=== PATIENT | female | born 1975 | race Caucasian/White ===

== ENCOUNTER 2021-08-12 02:28 | Emergency (ER) | payer OTHER ==
[~2021-08-12] VITALS: Ht 160 cm; Wt 113.4 kg
[2021-08-12 03:02] LABS: BASOPHILS ABSOLUTE AUTO 0.04 K/mm3 (0.00-0.23); BASOPHILS PERCENT AUTO 0 % (0-2); EOSINOPHILS ABSOLUTE AUTO 0.22 K/mm3 (0.00-0.68); EOSINOPHILS PERCENT AUTO 2 % (0-6); IMMATURE GRAN ABSOLUTE AUTO 0.03 K/mm3 (0.00-0.10); IMMATURE GRAN PERCENT AUTO 0 % (0-1); LYMPHOCYTES ABSOLUTE AUTO 2.44 K/mm3 (0.84-5.20); LYMPHOCYTES PERCENT AUTO 25 % (21-46); MONOCYTES ABSOLUTE AUTO 0.58 K/mm3 (0.16-1.47); MONOCYTES PERCENT AUTO 6 % (4-13); Mean Corpuscular HGB 27.6 pg (26.0-34.0); Mean Corpuscular HGB Conc 32.4 g/dL (31.5-36.5); Mean Corpuscular Volume 85 fL (80-100); Mean Platelet Volume 9.4 fL (9.1-12.4); NEUTROPHILS ABSOLUTE AUTO 6.62 K/mm3 (1.96-9.15); NEUTROPHILS PERCENT AUTO 67 % (41-73); Platelet Count 401 K/mm3 (150-400); RDW Coefficient Variation 14.2 % (11.7-14.2); RDW Standard Deviation 43.8 fL (35.1-46.3); Red Blood Cell Count 3.98 M/mm3 (3.80-5.20); White Blood Cell Count 9.93 K/mm3 (4.00-11.30)
[2021-08-12] MEDS ORDERED: AMLODIPINE BES2.5 MG PO (03:07)
[2021-08-12] MEDS ORDERED: ATOR40TA PO (03:07)
[2021-08-12] MEDS ORDERED: METFORMIN HCL500 M2 PO (03:07)
[2021-08-12] MEDS ORDERED: Ventolin/Prove6.7 GM (03:07)
[2021-08-12] MEDS ORDERED: AMITRIPTYLINE H25 MG PO (03:08)
[2021-08-12] MEDS ORDERED: HYDCHL25 PO (03:08)
[2021-08-12] MEDS ORDERED: COREG25 MG PO (03:08)
[2021-08-12] MEDS ORDERED: PLAVIX75 MG PO (03:08)
[2021-08-12] MEDS ORDERED: LISI20 PO (03:08)
[2021-08-12] MEDS ORDERED: DICLOFENAC SOD100 G1 TP (03:08)
[2021-08-12] MEDS ORDERED: INSULIN GL100 UNIT/2 (03:09)
[2021-08-12] MEDS ORDERED: NYSTRIT TOP (03:09)
[2021-08-12] MEDS ORDERED: INSULIN LI100 UNIT/6 SC (03:09)
[2021-08-12] MEDS ORDERED: NITROGLYCERIN0.4 M3 SL (03:10)
[2021-08-12] MEDS ORDERED: TRIDERM28.4 GM TOP (03:10)
[2021-08-12] MEDS ORDERED: TRAM50 PO (03:10)
[2021-08-12 03:21] LABS: Alanine Aminotransfer (ALT/SGP 14 U/L (12-78); Albumin, Blood 2.7 g/dL (3.4-5.0); Albumin/Globulin Ratio 0.6 (0.8-1.8); Alk Phos 66 U/L (50-136); Anion Gap 7 mmol/L (6-16); Aspartate Aminotrans (AST/SGOT 8 U/L (12-37); Bilirubin, Total 0.3 mg/dL (0.1-1.0); Blood Urea Nitrogen 10 mg/dL (8-24); Bun/Creatinine Ratio 17.8 (12.0-20.0); CO2, Blood 25 mmol/L (21-32); Calcium, Blood 8.4 mg/dL (8.5-10.1); Chloride, Blood 107 mmol/L (98-108); Creatinine, Blood 0.56 mg/dL (0.40-1.00); Globulin, Blood 4.3 g/dL (2.2-4.0); Glomerular Filtration Rate >60 (60-); Glucose, Blood 205 mg/dL (70-99); Potassium, Blood 3.7 mmol/L (3.5-5.5); Sodium, Blood 139 mmol/L (136-145); Troponin I <0.015 ng/mL (0.000-0.040)
== END 2021-08-12 04:23 | disposition home or self-care (01) ==
LOC: ER 02:28
PROVIDERS: Emergency Medicine
DX: R07.2 Precordial pain (principal); I25.2 Old myocardial infarction; E11.9 Type 2 diabetes mellitus without complications; I10 Essential (primary) hypertension; Z79.899 Other long term (current) drug therapy; Z79.84 Long term (current) use of oral hypoglycemic drugs; Z79.4 Long term (current) use of insulin
CPT/HCPCS: 36415; 71045; 80053; 83880; 84484; 85025; 93005; 93010; A9270; J2270

== ENCOUNTER 2022-06-20 12:33 | Emergency (ER) | payer OTHER ==
[~2022-06-20] VITALS: Ht 160 cm; Wt 113.4 kg
[~2022-06-20 12:33] MED LIST: AMITRIPTYLINE H25 MG PO; AMLODIPINE BES2.5 MG PO; ATOR40TA PO; COREG25 MG PO; DICLOFENAC SOD100 G1 TP; HYDCHL25 PO; INSULIN GL100 UNIT/2; INSULIN LI100 UNIT/6 SC; LISI20 PO; METFORMIN HCL500 M2 PO; NITROGLYCERIN0.4 M3 SL; NYSTRIT TOP; PLAVIX75 MG PO; TRAM50 PO; TRIDERM28.4 GM TOP; Ventolin/Prove6.7 GM
[2022-06-20 13:13] LABS: BASOPHILS ABSOLUTE AUTO 0.04 K/mm3 (0.00-0.23); BASOPHILS PERCENT AUTO 1 % (0-2); EOSINOPHILS ABSOLUTE AUTO 0.28 K/mm3 (0.00-0.68); EOSINOPHILS PERCENT AUTO 4 % (0-6); Hematocrit 35.7 % (33.0-51.0); Hemoglobin 11.8 g/dL (11.5-16.0); IMMATURE GRAN ABSOLUTE AUTO 0.02 K/mm3 (0.00-0.10); IMMATURE GRAN PERCENT AUTO 0 % (0-1); LYMPHOCYTES PERCENT AUTO 26 % (21-46); MONOCYTES ABSOLUTE AUTO 0.49 K/mm3 (0.16-1.47); MONOCYTES PERCENT AUTO 6 % (4-13); Mean Corpuscular HGB 28.1 pg (26.0-34.0); Mean Corpuscular HGB Conc 33.1 g/dL (31.5-36.5); Mean Corpuscular Volume 85 fL (80-100); Mean Platelet Volume 8.9 fL (9.1-12.4); NEUTROPHILS ABSOLUTE AUTO 4.99 K/mm3 (1.96-9.15); NEUTROPHILS PERCENT AUTO 64 % (41-73); Platelet Count 375 K/mm3 (150-400); RDW Coefficient Variation 14.7 % (11.7-14.2); RDW Standard Deviation 45.4 fL (35.1-46.3); White Blood Cell Count 7.82 K/mm3 (4.00-11.30)
[2022-06-20 13:27] LABS: Albumin, Blood 2.9 g/dL (3.4-5.0); Albumin/Globulin Ratio 0.7 (0.8-1.8); Bilirubin, Total 0.3 mg/dL (0.1-1.0); Bun/Creatinine Ratio 23.6 (12.0-20.0); Calcium, Blood 8.7 mg/dL (8.5-10.1); Creatinine, Blood 0.55 mg/dL (0.40-1.00); Globulin, Blood 4.2 g/dL (2.2-4.0); Potassium, Blood 3.9 mmol/L (3.5-5.5); Total Protein, Blood 7.1 g/dL (6.4-8.2)
[2022-06-20 14:15] LABS: Source, Urine Clean Catch
[2022-06-20 14:18] LABS: Appearance, Urine Clear (Clear); Bilirubin, Urine Neg (Neg); Blood, Urine 4+ (Neg); Glucose Qualitative, Urine Neg (Neg); Ketones, Urine Neg (Neg); Leukocyte Esterase, Urine Neg (Neg); Nitrite, Urine Neg (Neg); Protein, Urine Neg (Neg); Urobilinogen, Urine NORM (Normal)
[2022-06-20 14:23] LABS: Color, Urine No Color (P-Yellow)
[2022-06-20 14:26] LABS: Bacteria Rare /hpf; Squamous Epithelial Cells Rare /hpf (Few); White Blood Cells, Urine Not Seen /hpf (0-5)
== END 2022-06-20 16:31 | disposition home or self-care (01) ==
LOC: ER 12:33
PROVIDERS: Physician Assistant
DX: N83.201 Unspecified ovarian cyst, right side (principal); R31.9 Hematuria, unspecified; I25.2 Old myocardial infarction; E11.9 Type 2 diabetes mellitus without complications; I10 Essential (primary) hypertension; Z79.4 Long term (current) use of insulin; Z79.899 Other long term (current) drug therapy; Z91.041 Radiographic dye allergy status
CPT/HCPCS: 36415; 74177; 80053; 81001; 83690; 84703; 85025; J1200; J1885; J2930; J7120; Q9967

== ENCOUNTER 2022-09-08 17:32 | Emergency (ER) | payer OTHER ==
[~2022-09-08] VITALS: Ht 160 cm; Wt 113.4 kg
[2022-09-08 19:04] LABS: BASOPHILS ABSOLUTE AUTO 0.04 K/mm3 (0.00-0.23); BASOPHILS PERCENT AUTO 0 % (0-2); EOSINOPHILS ABSOLUTE AUTO 0.29 K/mm3 (0.00-0.68); EOSINOPHILS PERCENT AUTO 3 % (0-6); Hematocrit 29.6 % (33.0-51.0); Hemoglobin 9.4 g/dL (11.5-16.0); IMMATURE GRAN ABSOLUTE AUTO 0.04 K/mm3 (0.00-0.10); IMMATURE GRAN PERCENT AUTO 0 % (0-1); LYMPHOCYTES ABSOLUTE AUTO 2.24 K/mm3 (0.84-5.20); LYMPHOCYTES PERCENT AUTO 19 % (21-46); MONOCYTES ABSOLUTE AUTO 0.53 K/mm3 (0.16-1.47); MONOCYTES PERCENT AUTO 5 % (4-13); Mean Corpuscular HGB 26.9 pg (26.0-34.0); Mean Corpuscular HGB Conc 31.8 g/dL (31.5-36.5); Mean Corpuscular Volume 85 fL (80-100); NEUTROPHILS ABSOLUTE AUTO 8.42 K/mm3 (1.96-9.15); NEUTROPHILS PERCENT AUTO 73 % (41-73); Platelet Count 504 K/mm3 (150-400); RDW Coefficient Variation 14.5 % (11.7-14.2); RDW Standard Deviation 44.5 fL (35.1-46.3); Red Blood Cell Count 3.49 M/mm3 (3.80-5.20); White Blood Cell Count 11.56 K/mm3 (4.00-11.30)
[2022-09-08 19:22] LABS: Albumin, Blood 3.1 g/dL (3.4-5.0); Albumin/Globulin Ratio 0.8 (0.8-1.8); Bilirubin, Total 0.3 mg/dL (0.1-1.0); Bun/Creatinine Ratio 15.7 (12.0-20.0); Calcium, Blood 8.3 mg/dL (8.5-10.1); Creatinine, Blood 0.83 mg/dL (0.40-1.00); Globulin, Blood 3.9 g/dL (2.2-4.0); Potassium, Blood 3.6 mmol/L (3.5-5.5)
== END 2022-09-08 20:51 | disposition home or self-care (01) ==
LOC: ER 17:32
PROVIDERS: Student in an Organized Health Care Education/Training Program
DX: N93.9 Abnormal uterine and vaginal bleeding, unspecified (principal); D50.0 Iron deficiency anemia secondary to blood loss (chronic); I25.2 Old myocardial infarction
CPT/HCPCS: 36415; 76830; 76856; 80053; 84703; 85025; 86850; 86900; 86901

== ENCOUNTER → 2023-05-29 | Outpatient (CLI) | payer OTHER | LOC: LAB SHORT 08:44 → LAB 08:44 → PLD 08:44 | DX: B35.1 Tinea unguium (principal) | CPT/HCPCS: 88305; 88312 ==

== ENCOUNTER → 2023-08-14 | Outpatient (CLI) | payer OTHER | LOC: LAB SHORT 11:10 → LAB 11:10 | DX: K29.70 Gastritis, unspecified, without bleeding (principal) | CPT/HCPCS: 87338 ==

== ENCOUNTER 2023-09-18 11:02 | Day surgery (SDC) | payer OTHER ==
[~2023-09-18] VITALS: Ht 160 cm; Wt 117.1 kg
[2023-09-18] VITALS (21 sets, daily range): BP systolic 106–158; BP diastolic 69–118
[~2023-09-18 11:02] MED LIST changes: -INSULIN GL100 UNIT/2; +INSULIN GL100 UNIT/2 SC
[2023-09-18] MEDS ORDERED: propofoL 20 ML IV ONE (11:34)
[2023-09-18] MEDS ORDERED: FentaNYL Citrate 50 MCG/ML 2 ML Injection ONE ×4 (11:34→18:30)
[2023-09-18] MEDS ORDERED: Sugammadex Sodium 200 MG/2ML SDV (100 MG/ML) ONE (11:34)
[2023-09-18] MEDS ORDERED: Rocuronium Bromide 10 MG/ML 5ML Injection IV ONE ×2 (11:35→16:40)
[2023-09-18] MEDS ORDERED: Dexamethasone Sod Phos 10 MG/ML 1ML VIAL ONE (11:35)
[2023-09-18] MEDS ORDERED: Ondansetron HCl 2 MG / ML 2ML Vial ONE (11:35)
[2023-09-18] MEDS ORDERED: Lactated Ringer's 1,000 ML IV SCH ×2 (11:55→17:35)
[2023-09-18] MEDS ORDERED: ASPI81CH PO (12:06)
[2023-09-18] MEDS ORDERED: CeFAZolin Sodium 2,000 MG in NS 50 ML IV SCH ×2 (12:40→20:00)
--- NOTE | 2023-09-18 12:55 | NUR ---
Patient up to Ambulate independently. Gait steady. History, Chart, Medications and Allergies reviewed before start of procedure.Pre-Op teaching done. Pt verbalizes understanding. Patient confirms NPO status and agrees with scheduled surgery.
[2023-09-18] MEDS ORDERED: HYDROmorphone HCl/Pf 1MG SYR IV PRN (13:10)
[2023-09-18] MEDS ORDERED: Ondansetron HCl 2 MG / ML 2ML Vial IV PRN ×2 (13:15→17:40)
[2023-09-18] MEDS ORDERED: Lidocaine HCl 1% 5 ML SYR INJ ONE (13:15)
[2023-09-18] MEDS ORDERED: FentaNYL Citrate 50 MCG/ML 2 ML Injection IV PRN ×4 (13:15→17:40)
[2023-09-18] MEDS ORDERED: Midazolam HCl 1MG / ML 2ML Vial IV PRN (13:15)
[2023-09-18] MEDS ORDERED: Bupivacaine 0.5% HCl 5 MG/ML 30MLVIAL ONE (14:01)
[2023-09-18] MEDS ORDERED: ePHEDrine Sulfate 50 MG/ML 1ML Injection ONE (15:07)
[2023-09-18] MEDS ORDERED: Ketorolac Tromethamine 30mg Vial ONE (15:11)
[2023-09-18] MEDS ORDERED: Albuterol HFA200 ACT/6.7 GM INH INH PRN (16:50)
[2023-09-18] MEDS ORDERED: Nitroglycerin 0.4 MG SUBL SL PRN (16:50)
[2023-09-18] MEDS ORDERED: Promethazine HCl 25 MG Tab PO PRN (17:35)
[2023-09-18] MEDS ORDERED: Promethazine HCl 12.5 MG Supp PR PRN (17:35)
[2023-09-18] MEDS ORDERED: Naloxone HCl 0.4MG / ML 1ML Vial IV PRN (17:35)
[2023-09-18] MEDS ORDERED: FLU VACC QS2023-24(6MOS UP)/PF 60 MCG/0.5 ML SYRINGE IM SCH (17:40)
[2023-09-18] MEDS ORDERED: Simethicone 80 MG Chew PO PRN (17:40)
[2023-09-18] MEDS ORDERED: OxyCODONE 5 mg/Acetamin 325 mg TABLET PO PRN (17:40)
[2023-09-18] MEDS ORDERED: Ondansetron 4 MG TAB PO PRN (17:45)
[2023-09-18] MEDS ORDERED: Ketorolac Tromethamine 30mg Vial IV SCH (18:00)
[2023-09-18] MEDS ORDERED: HYDROmorphone HCl/Pf 1MG SYR ONE (18:34)
[2023-09-18] MEDS ORDERED: MetFORMIN HCl 500 mg PO SCH (21:00)
[2023-09-18] MEDS ORDERED: Carvedilol 25 MG Tab PO SCH (21:00)
[2023-09-18] MEDS ORDERED: Belladonna Alkaloids/Opium 60 MG Sup PR ONE (21:35)
[2023-09-18] MEDS ORDERED: Polyethylene Glycol 3350 17 gm PO PRN (21:35)
[2023-09-19 00:01] VITALS: BP 134/78
[2023-09-19 04:03] VITALS: BP 133/77
[2023-09-19 05:03] LABS: BASOPHILS ABSOLUTE AUTO 0.01 K/mm3 (0.00-0.23); BASOPHILS PERCENT AUTO 0 % (0-2); EOSINOPHILS PERCENT AUTO 0 % (0-6); Hematocrit 39.9 % (33.0-51.0); Hemoglobin 13.3 g/dL (11.5-16.0); IMMATURE GRAN ABSOLUTE AUTO 0.05 K/mm3 (0.00-0.10); IMMATURE GRAN PERCENT AUTO 0 % (0-1); LYMPHOCYTES PERCENT AUTO 6 % (21-46); MONOCYTES ABSOLUTE AUTO 0.14 K/mm3 (0.16-1.47); MONOCYTES PERCENT AUTO 1 % (4-13); Mean Corpuscular HGB 30.2 pg (26.0-34.0); Mean Corpuscular HGB Conc 33.3 g/dL (31.5-36.5); Mean Corpuscular Volume 91 fL (80-100); Mean Platelet Volume 9.3 fL (9.1-12.4); NEUTROPHILS ABSOLUTE AUTO 11.89 K/mm3 (1.96-9.15); NEUTROPHILS PERCENT AUTO 93 % (41-73); Platelet Count 385 K/mm3 (150-400); RDW Coefficient Variation 13.2 % (11.7-14.2); RDW Standard Deviation 43.6 fL (35.1-46.3); White Blood Cell Count 12.79 K/mm3 (4.00-11.30)
[2023-09-19 05:31] LABS: Bun/Creatinine Ratio 24.3 (12.0-20.0); Calcium, Blood 8.6 mg/dL (8.5-10.1); Creatinine, Blood 0.62 mg/dL (0.40-1.00); Potassium, Blood 4.2 mmol/L (3.5-5.5)
--- NOTE | 2023-09-19 05:32 | NUR ---
SHIFT SUMMARY POD1 LAP HYSTERECTOMY PT RESTLESS T/O NIGHT. PAIN MANAGED PER EMAR. UP TO BATHROOM AND BSC MULTIPLE TIMES DURING THE NIGHT. TOLERTAING REGULAR DIET. DENIES ANY N/V. [facility] CAME OUT SHORTLY AFTER ARRIVAL TO UNIT AT 1900. PT VOIDING. X4 LAP SITES, ALL C/D/I. PLAN FOR D/C HOME TODAY. NO OTHER CONCERNS AT THIS TIME, CALL LIGHT WITHIN REACH
[2023-09-19 07:28] VITALS: BP 129/77
[2023-09-19] MEDS ORDERED: Insulin Human Lispro 100 Units/ML 3ML Syringe SC SCH (08:30)
[2023-09-19] MEDS ORDERED: Lisinopril 20 MG Tab PO SCH (09:00)
[2023-09-19] MEDS ORDERED: Enoxaparin 40 MG/0.4 ML SYR SC SCH (09:00)
[2023-09-19] MEDS ORDERED: AmLODIPine Besylate 5 MG Tab PO SCH (09:00)
[2023-09-19] MEDS ORDERED: Aspirin 81 MG Chew PO SCH (09:00)
[2023-09-19] MEDS ORDERED: Atorvastatin 40 MG Tab PO SCH (09:00)
[2023-09-19] MEDS ORDERED: Insulin Glargine-Yfgn 100 Unit/mL 3 ML SYR SC SCH (09:00)
[2023-09-19] MEDS ORDERED: SIME80CH PO (12:51)
[2023-09-19] MEDS ORDERED: Percocet 5-3251 EACH PO (12:51)
[2023-09-19] MEDS ORDERED: PROM25 PO (12:51)
--- NOTE | 2023-09-19 13:53 | NUR ---
DISCHARGE SUMMARY POD1 LAP HYSTER, A/OX4, VSS, TOLERATING PO, VOIDING INDEPENDENTLY, AMBULATING IN THE ROOM INDEPENDENTLY, PAIN WELL MANAGED, ABD BINDER IN PLACE PRIOR TO START OF THIS SHIFT, 4 ABD LAP SITES C/D/I, IV ACCESS REMOVED X2 WHILE DISCUSSED DISCHARGE INFORMATION AT 1320. DISCUSSED DISCHARGE INFORMATION WITH HER AND HER INCLUDING HOME CARE, MEDICATIONS, AND FOLLOW UP APPOINTMENTS. NO QUESTIONS AT TIME OF DISCHARGE, ESCORTED OUT VIA WC TO PRIVATE AUTO TO GO HOME.
== END 2023-09-19 13:30 | disposition home or self-care (01) ==
LOC: ORSCMMR 11:02 → ORD 12:30 → ORSCMMR 12:30 → SURS 18:11 → ORSCMMR 09-19 13:30
PROVIDERS: Obstetrics & Gynecology
PROC: 0UT9FZZ Resection of Uterus, Via Natural or Artificial Opening With Percutaneous Endoscopic Assistance (ICD-10-PCS; principal; 2023-09-18 14:00)
PROC: 0UT0FZZ Resection of Right Ovary, Via Natural or Artificial Opening With Percutaneous Endoscopic Assistance (ICD-10-PCS; principal; 2023-09-18 14:00)
PROC: 0UT7FZZ Resection of Bilateral Fallopian Tubes, Via Natural or Artificial Opening With Percutaneous Endoscopic Assistance (ICD-10-PCS; principal; 2023-09-18 14:00)
DX: N92.1 Excessive and frequent menstruation with irregular cycle (principal); N80.03 Adenomyosis of the uterus; D50.0 Iron deficiency anemia secondary to blood loss (chronic); N83.201 Unspecified ovarian cyst, right side; R10.2 Pelvic and perineal pain; E11.9 Type 2 diabetes mellitus without complications; J44.9 Chronic obstructive pulmonary disease, unspecified; I25.10 Atherosclerotic heart disease of native coronary artery without angina pectoris; I25.2 Old myocardial infarction; E66.01 Morbid (severe) obesity due to excess calories; Z68.42 Body mass index [BMI] 45.0-49.9, adult; Z79.899 Other long term (current) drug therapy; I10 Essential (primary) hypertension; Z79.82 Long term (current) use of aspirin; Z79.01 Long term (current) use of anticoagulants; N80.30 Endometriosis of pelvic peritoneum, unspecified
CPT/HCPCS: 36415; 80048; 82947; 85025; 86850; 86900; 86901; 88307; 94762; A9270; J0690; J1100; J1170; J1650; J1815; J1885; J2250; J2405; J2704; J3010; J7120

== ENCOUNTER → 2024-08-17 | Outpatient (CLI) | payer OTHER ==
[~2024-08-17] MED LIST changes: +ASPI81CH PO; +PROM25 PO; +Percocet 5-3251 EACH PO; +SIME80CH PO
[2024-08-17 21:25] LABS: Microalbumin, Urine Quant. 6.82 mg/L (0.000-20.000); Protein, Urine Quantitative 10.9 mg/dL (0.0-11.9)
== END | disposition home or self-care (01) ==
LOC: LAB 14:55 → LAB SHORT 14:55 → LAB FUT 08-10 07:15
PROVIDERS: Internal Medicine Nephrology
DX: N18.2 Chronic kidney disease, stage 2 (mild) (principal); D63.1 Anemia in chronic kidney disease; N25.81 Secondary hyperparathyroidism of renal origin; E55.9 Vitamin D deficiency, unspecified; E78.00 Pure hypercholesterolemia, unspecified; R76.9 Abnormal immunological finding in serum, unspecified; R94.5 Abnormal results of liver function studies; R94.6 Abnormal results of thyroid function studies
CPT/HCPCS: 81050; 82043; 82570; 84156

== ENCOUNTER 2025-03-22 08:06 | Day surgery (SDC) | payer OTHER ==
[~2025-03-22] VITALS: Ht 162.6 cm; Wt 100.8 kg
[~2025-03-22 08:06] MED LIST changes: +ERGO400; +FURO20 PO; +GABA100; +Isosorbide Mono30 MG; +OZEMPIC0.25 MG/02; +PANT40; +STEGLATRO15 MG; +TRAM50
[2025-03-22] MEDS ORDERED: Benzocaine Oral Spray 0.5ML UD ONE (08:45)
[2025-03-22 08:51] VITALS: BP 99/72
--- NOTE | 2025-03-22 09:02 | NUR ---
History, Chart, Medications and Allergies reviewed before start of procedure. Ambulatory in Day Surgery. Patient confirms NPO status and agrees with scheduled surgery. Patient States Post-Procedure ride home has been arranged.
[2025-03-22] MEDS ORDERED: Midazolam HCl 1MG / ML 2ML Vial ONE (09:38)
--- NOTE | 2025-03-22 10:00 | NUR ---
03/22/25 Caroline Desouza CONFIRMED AND REVIEWED H&P, MEDCICATIONS, ALLERGIES, MEDICAL HISTORY, RESPIRATORY HISTORY, VITAL SIGNS, 3-LEAD EKG, CONSENTS, AND PHYSICIAN ORDERS. PATIENT CONFIRMS NPO STATUS AND AGREES WITH SCHEDULED PROCEDURE. MONITOR INTACT WITH CONTINUOUS PULSE OXIMETRY, CAPNOGRAPHY, 3-LEAD EKG, INTERMITTENT BP. SUPPLEMENTAL O2 TO BE TITRATED THROUGHOUT PROCEDURE TO MAINTAIN O2 SATURATION ABOVE 90%. PATIENT DETERMINED TO BE ASA APPROPRIATE FOR PROPOFOL SEDATION PRIOR TO START OF PROCEDURE BY DR. HERNANDEZ.
[2025-03-22 10:03] VITALS: BP 117/63
--- NOTE | 2025-03-22 10:14 | NUR ---
Discharge instructions reviewed with patient. Patient ve understanding. Copy given to patient to take home. Prescription for Plavix 75mg once Daily called into [facility], Pt instructed to D/C [facility], and up Protonix to twice daily. Patient States Post-Procedure ride home has been arranged. Discharged via wheelchair to private car for ride home.
== END 2025-03-22 10:17 | disposition home or self-care (01) ==
LOC: ORSCMMR 08:06 → ORD 09:00 → ORSCMMR 10:17
PROVIDERS: Internal Medicine Gastroenterology
PROC: 0DBM8ZX Excision of Descending Colon, Via Natural or Artificial Opening Endoscopic, Diagnostic (ICD-10-PCS; principal; 2025-03-22 09:00)
PROC: 0DB98ZX Excision of Duodenum, Via Natural or Artificial Opening Endoscopic, Diagnostic (ICD-10-PCS; principal; 2025-03-22 09:00)
PROC: 0DB48ZX Excision of Esophagogastric Junction, Via Natural or Artificial Opening Endoscopic, Diagnostic (ICD-10-PCS; principal; 2025-03-22 09:00)
PROC: 0DB78ZX Excision of Stomach, Pylorus, Via Natural or Artificial Opening Endoscopic, Diagnostic (ICD-10-PCS; principal; 2025-03-22 09:00)
DX: R10.13 Epigastric pain (principal); K29.70 Gastritis, unspecified, without bleeding; K21.9 Gastro-esophageal reflux disease without esophagitis; K63.5 Polyp of colon; K62.5 Hemorrhage of anus and rectum; K57.30 Diverticulosis of large intestine without perforation or abscess without bleeding; R19.4 Change in bowel habit; E11.9 Type 2 diabetes mellitus without complications; Z79.4 Long term (current) use of insulin; Z79.85 Long-term (current) use of injectable non-insulin antidiabetic drugs; Z79.82 Long term (current) use of aspirin; Z87.891 Personal history of nicotine dependence; E66.9 Obesity, unspecified; Z68.37 Body mass index [BMI] 37.0-37.9, adult; I10 Essential (primary) hypertension; F32.A Depression, unspecified; I25.2 Old myocardial infarction; Z79.899 Other long term (current) drug therapy
CPT/HCPCS: 82947; 88305; 88342; A9270; J2250; J2704; J7120